=== PATIENT | male | born 1960 | race African-American/Black ===

== ENCOUNTER → 2016-07-20 | Day surgery (SDC) | payer OTHER | END | disposition home or self-care (01) | LOC: FAS 07:33 | DX: K29.50 Unspecified chronic gastritis without bleeding (principal); K21.9 Gastro-esophageal reflux disease without esophagitis; D64.9 Anemia, unspecified; F17.210 Nicotine dependence, cigarettes, uncomplicated; I10 Essential (primary) hypertension; E78.00 Pure hypercholesterolemia, unspecified; E78.5 Hyperlipidemia, unspecified; N30.00 Acute cystitis without hematuria; M1A.9XX0 Chronic gout, unspecified, without tophus (tophi); Z88.6 Allergy status to analgesic agent; Z83.3 Family history of diabetes mellitus; Z80.9 Family history of malignant neoplasm, unspecified; Z82.49 Family history of ischemic heart disease and other diseases of the circulatory system; Z79.1 Long term (current) use of non-steroidal anti-inflammatories (NSAID); Z79.899 Other long term (current) drug therapy | CPT/HCPCS: 88305; 88312; J2704 ==

== ENCOUNTER 2020-08-01 15:02 | Emergency (ER) | payer OTHER ==
[~2020-08-01 15:02] MED LIST: DITROPAN XL *OUT5 MG PO; GLUCOPHAGE XR750 MG PO; IBUPROFEN800 MG PO; JARDIANCE10 MG PO; NORVASC5 MG PO; PRILOSEC20 MG PO; VOLTAREN **OUT75 MG PO
[2020-08-01 16:12] LABS: BASOPHIL 0.3 % (0-2); EOSINOPHIL 3.5 % (0-5); HCT 40.5 % (42.0-52.0); HGB 13.1 g/dl (13.2-18.0); LYMPHOCYTE 37.4 % (15-48); MCH 28.1 pg (25.0-31.0); MCHC 32.3 g/dL (32.0-36.0); MCV 86.7 fL (78.0-100.0); MONOCYTE 8.4 % (0-12); MPV 12.2 fL (6.0-9.5); NRBC 0; PLT 262 K/uL (150-400); RBC 4.67 M/uL (4.70-6.00); RDW 13.9 % (11.5-14.0); WBC 7.2 K/uL (4.0-10.5)
[2020-08-01 16:12] LABS: BILIRUBIN NEGATIVE (NEGATIVE); BLOOD NEGATIVE Ery/uL (NEGATIVE); CLARITY CLEAR (CLEAR); COLOR YELLOW (YELLOW); GLUCOSE (U) 3+ mg/dL (NORMAL); LEUKOCYTES NEGATIVE Leu/uL (NEGATIVE); NITRITE NEGATIVE (NEGATIVE); PROTEIN NEGATIVE (NEGATIVE); SPECIFIC GRAVITY <=1.005 (1.001-1.030); UROBILINOGEN 0.2 mg/dL (0.2-1.0)
[2020-08-01 16:16] LABS: INR 1.03 (0.9-1.2); PROTHROMBIN TIME 12.8 SECONDS (11.4-13.6)
[2020-08-01 16:40] LABS: PRO-BNP < 5 pg/mL (<125)
[2020-08-01 17:04] LABS: ALBUMIN 4.2 g/dL (3.4-5.0); BILIRUBIN - TOTAL 0.7 mg/dL (0.2-1.0); BUN/CREAT RATIO (CALC) 14.3 RATIO; CREATININE 0.91 mg/dL (0.67-1.17); GLOBULIN (CALCULATION) 4.8 g/dL; POTASSIUM 4.4 mmol/L (3.5-5.1)
[2020-08-01 19:30] LABS: CREATININE 0.92 mg/dL (0.67-1.17); POTASSIUM 3.7 mmol/L (3.5-5.1)
== END 2020-08-01 19:30 | disposition home or self-care (01) ==
LOC: FER 15:02
PROVIDERS: Emergency Medicine
DX: E11.65 Type 2 diabetes mellitus with hyperglycemia (principal); Z20.822 Contact with and (suspected) exposure to COVID-19
CPT/HCPCS: 36415; 80048; 80053; 81003; 82728; 83615; 83690; 83735; 83880; 84145; 84484; 85025; 85610; 85730; 93005; J7030; U0002